=== PATIENT | female | born 1980 | race Caucasian/White ===

== ENCOUNTER 2019-05-29 09:10 | Inpatient (IN) | payer SELFPAY ==
[2019-05-29] MEDS ORDERED: LACTATED RINGERS 2,000 ML ONE (09:59)
[2019-05-29] MEDS ORDERED: REGLAN IV ONE ×2 (10:08→11:42)
[2019-05-29] MEDS ORDERED: PEPCID IV ONE ×2 (10:08→11:42)
[2019-05-29] MEDS ORDERED: BICITRA PO ONE ×2 (10:08→11:42)
[2019-05-29] MEDS ORDERED: DEXMEDETOMIDINE IV ONE (10:23)
--- NOTE | 2019-05-29 10:31 | Anesthesia Consultation ---
Anesthesia Consult and Med Hx Date of service: 05/29/19 - Airway Anesthetic Teeth Evaluation: Good ROM Head & Neck: Adequate Mental/Hyoid Distance: Adequate Mallampati Class: Class II Intubation Access Assessment: Probably Good - Pulmonary Exam CTA: Yes - Cardiac Exam Cardiac Exam: RRR - Pre-Operative Health Status ASA Pre-Surgery Classification: ASA2 Proposed Anesthetic Plan: Spinal - Pulmonary Hx Smoking: No Hx Asthma: No Hx Respiratory Symptoms: No SOB: No COPD: No Home Oxygen Therapy: No Hx Pneumonia: No Hx Sleep Apnea: No - Cardiovascular System Hx Hypertension: No Hx Coronary Artery Disease: No Hx Heart Attack/AMI: No Hx Angina: No Hx Percutaneous Transluminal Coronary Angioplasty (PTCA): No Hx Cardia Arrhythmia: No Hx Pacemaker: No Hx Internal Defibrillator: No Hx Valvular Heart Disease: No Hx Heart Murmur: No Hx Peripheral Vascular Disease: No - Central Nervous System Hx Neuromuscular Disorder: No Hx Seizures: No CVA: No Hx Back Pain: No Hx Psychiatric Problems: No - Gastrointestinal Hx Ulcer: No Hx Gastroesophageal Reflux Disease: No - Endocrine Hx Renal Disease: No Hx End Stage Renal Disease: No Hx Cirrhosis: No Hx Liver Disease: No Hx Insulin Dependent Diabetes: No Hx Non-Insulin Dependent Diabetes: No Hx Thyroid Disease: No Hx Hypothyroidism: No Hx Hyperthyroidism: No - Hematic Hx Anemia: Yes (taking iron) Hx Sickle Cell Disease: No - Other Systems Hx Alcohol Use: No Hx Substance Use: No Hx Cancer: No Hx Obesity: No
[2019-05-29] MEDS ORDERED: ZOFRAN IV PRN ×2 (10:32→13:34)
[2019-05-29] MEDS ORDERED: BENADRYL IV PRN (10:32)
[2019-05-29] MEDS ORDERED: DILAUDID IV PRN ×2 (10:32)
--- NOTE | 2019-05-29 10:32 | Anesthesia Day of Surgery ---
Anesthesia Day of Surgery - Day of Surgery Patient Examined: Yes Patient H&P Reviewed: Yes Patient is NPO: Yes Beta Blockers: No Cardiac Clearance: No Pulmonary Clearance: No Slade's Test: N/A
[2019-05-29 10:34] LABS: Basophils % (Auto) 0.7 % (0.0-1.8); Eosinophils # (Auto) 0.1 K/mm3 (0.0-0.4); Eosinophils % (Auto) 2.2 % (0.0-4.3); Hematocrit 32.6 % (30.3-42.9); Hemoglobin 11.1 gm/dl (10.1-14.3); Lymphocytes # (Auto) 1.3 K/mm3 (1.2-5.4); Lymphocytes % (Auto) 28.8 % (13.4-35.0); Mean Corpuscular HGB Conc 34 % (30-34); Mean Corpuscular Volume 90 fl (79-97); Monocytes # (Auto) 0.6 K/mm3 (0.0-0.8); Monocytes % (Auto) 13.8 % (0.0-7.3); Platelet Count 188 K/mm3 (140-440); Red Blood Count 3.62 M/mm3 (3.65-5.03); Red Cell Distribution Width 14.9 % (13.2-15.2)
[2019-05-29] MEDS ORDERED: LACTATED RINGERS 1,000 ML IV SCH ×2 (11:00→12:00)
[2019-05-29] MEDS ORDERED: PITOCin/NS 20 UNIT/1000ML DRIP 20 UNITS/1,000 ML BAG IV SCH ×3 (11:00→14:00)
[2019-05-29] MEDS ORDERED: ANCEF/STERILE WATER 2 GM/20 ML 2 GM/20 ML SYRINGE IV ONE (11:15)
--- NOTE | 2019-05-29 11:36 | History and Physical Report ---
History of Present Illness Date of examination: 05/29/19 Date of admission: 05/29/19 09:10 Chief complaint: Here for a 3rd delivery at term . History of present illness: Here for a 3rd delivery at term . Past History Past Medical History: no pertinent history (liposuction) Past Surgical History: section, other (liposuction/cosmetic reconstruction of anterior abdominal skin.) - Obstetrical History Expected Date of Delivery: 06/05/19 Actual Gestation: 39 Week(s) 0 Day(s) : 4 Medications and Allergies Allergies Allergy/AdvReac Type Severity Reaction Status Date / Time No Known Allergies Allergy Verified 08/03/13 15:05 Home Medications Medication Instructions Recorded Confirmed Last Taken Type Qxf266/Iron Fum/Folic/Docusate 1 each PO QDAY #30 tablet 09/18/13 05/07/15 05/05/15 Rx [ 19 Tablet] Acetaminophen [Acetaminophen ER 650 mg PO Q6HR #30 tablet.er 04/02/15 05/07/15 05/03/15 Rx TAB] Ferrous Sulfate [Feosol 325 MG tab] 325 mg PO BID #30 tablet 05/08/15 Unknown Rx Ibuprofen [Motrin 800 MG tab] 800 mg PO Q6H PRN #30 tablet 05/08/15 Unknown Rx oxyCODONE /ACETAMINOPHEN [Percocet 2 tab PO Q6H PRN #30 tablet 05/08/15 Unknown Rx 5/325 mg] Active Meds: Active Medications Cefazolin Sodium (Ancef/Sterile Water 2 Gm/20 Ml) 2 gm IV PREOP NR Stop: 05/29/19 16:00 Diphenhydramine HCl (Benadryl) 12.5 mg IV Q2H PRN PRN Reason: Itching Hydromorphone HCl (Dilaudid) 0.5 mg IV Q5M PRN PRN Reason: BREAK Stop: 05/29/19 23:59 Hydromorphone HCl (Dilaudid) 0.5 mg IV Q4H PRN PRN Reason: breakthrough pain > 7/10 Oxytocin/Sodium Chloride (Pitocin/Ns 20 Unit/1000ml Drip) 20 units in 1,000 mls @ 0 mls/hr IV TITR EDILBERTO Lactated Ringer's (Lactated Ringers) 1,000 mls @ 2,250 mls/hr IV PREOP EDILBERTO Stop: 05/30/19 11:27 Last Admin: 05/29/19 11:07 Dose: 2,250 mls/hr Documented by: Ondansetron HCl (Zofran) 4 mg IV Q8H PRN PRN Reason: Nausea And Vomiting Review of Systems All systems: negative - Vital Signs Vital signs: Vital Signs Temp Resp 97.3 F L 17 05/29/19 09:34 05/29/19 09:34 Temp Pulse Resp BP Pulse Ox 97.3 F L 73 17 111/54 98 05/29/19 09:34 05/29/19 10:48 05/29/19 09:34 05/29/19 10:48 05/29/19 10:48 - Physical Exam Lungs: Positive: Normal air movement Abdomen: Positive: normal appearance, soft, distention, normal bowel sounds. Negative: tenderness Uterus: Positive: enlarged (consistent with gestational age) Deep Tendon Reflex Grade: Normal +2 - Obstetrical FHR: auscultation normal Results Result Diagrams: 05/29/19 09:50 Abnormal lab results 05/29/19 Range/Units 09:50 WBC 4.3 L (4.5-11.0) K/mm3 RBC 3.62 L (3.65-5.03) M/mm3 [place] % (Auto) 13.8 H (0.0-7.3) % All other labs normal. Assessment and Plan - Patient Problems (1) Previous delivery affecting , antepartum Current Visit: Yes Status: Acute (2) 39 weeks gestation of Current Visit: No Status: Acute (3) Request for sterilization Current Visit: Yes Status: Acute Plan to address problem: All the risks of and bilateral salpingectomies were discussed and patient understood all. All her questions were answered and she gave her consent for surgery. Patient will have a delivery followed by bilateral salpingectomies.
[2019-05-29] MEDS ORDERED: WATER FOR IRRIG STERILE IR ONE (11:47)
[2019-05-29] MEDS ORDERED: NACL 0.9% IR ONE (11:47)
[2019-05-29] MEDS ORDERED: ANCEF/STERILE WATER 2 GM/20 ML IV NR (12:00)
[2019-05-29] MEDS ORDERED: ANCEF/STERILE WATER 2 GM/20 ML 2 GM/20 ML SYRINGE IV NR (12:00)
[2019-05-29] MEDS ORDERED: ZOFRAN ONE (12:40)
[2019-05-29] MEDS ORDERED: TORADOL ONE (12:41)
[2019-05-29] MEDS ORDERED: TYLENOL PO PRN (13:34)
[2019-05-29] MEDS ORDERED: NARCAN 0.4 MG/1 ML IV PRN (13:34)
[2019-05-29] MEDS ORDERED: MORPHINE IV PRN (13:34)
[2019-05-29] MEDS ORDERED: LANSINOH TP PRN (13:34)
[2019-05-29] MEDS ORDERED: TUCKS PAD TP PRN (13:34)
--- NOTE | 2019-05-29 13:43 | Operative Report ---
Operative Report Operative Report: Date of surgery: May 29 2019 Preoperative diagnoses: Term , previous section, request for tubal sterilization Postoperative diagnoses: The same. Operation: Lower segment transverse delivery, bilateral salpingectomies Surgeon:Marshall Ghotra MD Hog Stomach Preparer: ALVIN HALEY Anesthesia: Spinal block Estimated blood loss: 600 mL Complications: None Findings: There was a live baby girl in cephalic presentation weighing 7 lbs. 3 oz. scores were 8/9. The pelvis was free of any adhesions. Both fallopian tubes and ovaries were grossly normal. The uterus was unremarkable gravid structure. Procedure in detail: The patient was taken to the operating room and given a spinal block. Patient was placed in the straight supine position and a Bella catheter was inserted. The patient was prepped in the abdomen. The drapes were placed. A timeout was done. With the go ahead from the shift nurse manager, a Pfannenstiel incision was made. This incision was carried across the subcutaneous layer to the fascia which was also divided transversely. The recti abdominis muscle flaps were stripped from the fascia using a combination of blunt and sharp dissections. The muscles were in the midline to gain access to the anterior parietal peritoneum whi ch was divided after excluding any underlying viscera. The access to the peritoneal cavity was then widened by manual stretching. The bladder blade was applied. The utero vesicle peritoneal flap was divided transversely allowing the bladder to be displaced caudally. The uterine incision was placed in the lower segment transversely. The uterine incision was carried to the decidual layer. The uterine incision was extended on both sides using the bandage scissors. The amniotic sac was ruptured with clear fluid. The head was lifted out of the false maternal pelvis and delivered through the incision using fundal pressure. The airways were bulb suctioned beginning with the mouth. Continuing fundal pressure combined with traction on the mandibular processes of the jaw delivered the rest of the baby. The umbilical cord was double clamped and divided. The baby was carefully transferred to the pediatric team. The placenta was manually removed from the uterine cavity. The uterine cavity was explored and was empty of any placental remnants. The uterine incision was repaired in 2 layers with #1 Vicryl. The surgical line on the uterus was hemostatic. Both fallopian tubes were excised from fimbria to the cornual aspect of the uterus by thermal coagulation and transection of the mesosalpinges on both sides. There was no bleeding during the excision of the fallopian tubes. Both samples were sent off for histopathology. Blood and clots were cleared from the peritoneal cavity. The anterior parietal peritoneum was repaired with #1 Vicryl. The fascia was repaired with #1 Vicryl. The subcutaneous layer was made hemostatic using the Bovie before the skin was closed subcuticularly with 4-0 Vicryl. There were no complications. The estimated blood loss was 600 mL. All sponges and instrument counts were correct. Patient was safely transferred to the recovery room.
--- NOTE | 2019-05-29 13:43 | Post Anesthesia Evaluation ---
- Post Anesthesia Evaluation Patient Participated: Yes Airway Patent: Yes Stable Respiratory Function: Yes Nausea/Vomiting: No Temp > 96.8F: Yes Pain Manageable: Yes Adequeate Hydration: Yes Anesthesia Complications: No Block Receding Appropriately: Yes Patient on Ventilator: No
[2019-05-29] MEDS ORDERED: SODIUM CHLORIDE FLUSH SYRINGE 10 ML IV NR (14:00)
[2019-05-29] MEDS: TORADOL IV PRN (16:46)
[2019-05-29] MEDS: NORCO 5/325 PO PRN (22:14)
[2019-05-30] MEDS: ANCEF/NS 1 GM/50 ML 1 GM/50 ML BAG IV SCH ×2 (00:11→20:51)
[2019-05-30] MEDS: D5LR 1,000 ML IV SCH ×2 (00:11→07:31)
[2019-05-30] MEDS: TORADOL IV PRN ×3 (00:19→13:41)
[2019-05-30 00:47] LABS: Hematocrit 27.5 % (30.3-42.9); Hemoglobin 9.4 gm/dl (10.1-14.3)
[2019-05-30] MEDS ORDERED: BOOSTRIX IM ONE (06:00)
[2019-05-30] MEDS: NORCO 5/325 PO PRN ×2 (10:26→18:50)
[2019-05-30] MEDS: FEOSOL PO SCH (10:26)
[2019-05-30] MEDS: PRENATAL VITAMIN PO SCH (10:26)
[2019-05-30] MEDS ORDERED: AFLURIA QUAD 2019-2020 (3YR UP) IM ONE (12:00)
--- NOTE | 2019-05-30 18:09 | Progress Note ---
Assessment and Plan A: POD#1 s/p Repeat c/s with BTL Asymptomatic anemia Stable VSS P: Routine PO/PP care Abdominal binder Anticipate discharge home 24-48 hrs Subjective - Subjective Date of service: 05/30/19 Principal diagnosis: POD#1 s/p Repeat c/s with BTL Interval history: See H&P and operative note Patient reports: appetite normal, voiding normally, pain well controlled, flatus, ambulating normally, no bowel movement : doing well Objective - Vital Signs Latest vital signs: Vital Signs Temp Pulse Resp BP BP Pulse Ox 05/30/19 15:44 97.9 F 71 16 89/50 98 05/30/19 12:15 99.0 F 90 16 92/56 98 05/30/19 07:51 98.4 F 72 16 94/48 95 05/30/19 05:50 98.4 F 78 18 94/49 97 05/30/19 00:20 97.9 F 74 18 98/52 97 05/29/19 20:29 98.0 F 69 18 99/55 96 Intake and Output 05/30/19 05/30/19 05/30/19 07:59 15:59 23:59 Intake Total 1156.667 360 Balance 1156.667 360 Intake: IV 916.667 D5lr 1,000 ml @ 125 mls/ 916.667 hr IV DIRECT EDILBERTO Rx#: [id number] Oral 240 360 Other: Total, Intake Amount 120 360 - Exam Breasts: Present: normal Cardiovascular: Present: Regular rate, Normal S1, Normal S2, No murmurs Lungs: Present: Clear to auscultation, Normal air movement Abdomen: Present: normal appearance, soft, tenderness (as expected post-op), normal bowel sounds. Absent: distention Vulva: both: normal Uterus: Present: firm, fundal height below umbilicus (-1) Extremities: Present: normal Incision: Present: normal, dry, intact, dressed (pressure dressing CDI) - Labs Labs: Abnormal lab results 05/30/19 Range/Units 00:26 Hgb 9.4 L (10.1-14.3) gm/dl Hct 27.5 L (30.3-42.9) %
[2019-05-30] MEDS: IBUPROFEN PO PRN (20:50)
[2019-05-31] MEDS: NORCO 5/325 PO PRN ×4 (00:22→20:28)
[2019-05-31] MEDS: IBUPROFEN PO PRN ×3 (03:41→16:50)
[2019-05-31] MEDS: FEOSOL PO SCH (09:12)
[2019-05-31] MEDS: PRENATAL VITAMIN PO SCH (09:12)
--- NOTE | 2019-05-31 10:32 | Progress Note ---
Assessment and Plan - Patient Problems (1) Status post repeat low transverse section Current Visit: No Status: Acute Plan to address problem: Continue routine PP orders Keep incision dry and intact Anticipate d/c home in 48 hrs if stable (2) Anemia Current Visit: No Status: Acute Qualifiers: Anemia type: other cause Other causes of anemia: acute posthemorrhagic Qualified Code(s): D62 - Acute posthemorrhagic anemia Plan to address problem: Asymptomatic Continue daily oral iron supplementation Increase iron rich foods into diet Subjective - Subjective Date of service: 05/31/19 Principal diagnosis: POD#1 s/p Repeat c/s with BTL Interval history: See admission H & P; OB operative note and PP progress notes Patient reports: appetite normal, voiding normally, pain well controlled (with medications), flatus, ambulating normally, no bowel movement [place]: doing well, bottle feeding Objective - Vital Signs Latest vital signs: Vital Signs Temp Pulse Resp BP BP Pulse Ox 05/31/19 08:52 97.8 F 62 18 84/42 05/31/19 00:51 97.8 F 76 18 108/62 98 05/30/19 17:13 67 16 99/56 99 05/30/19 15:44 97.9 F 71 16 89/50 98 05/30/19 12:15 99.0 F 90 16 92/56 98 Intake and Output 05/30/19 05/31/19 05/31/19 23:59 07:59 15:59 Intake Total 600 480 Output Total 800 Balance -200 480 Intake: Oral 600 480 Output: Urine 800 Void 800 Other: Total, Intake Amount 120 480 Total, Output Amount 400 - Exam Breasts: Present: normal Cardiovascular: Present: Regular rate Lungs: Present: Normal air movement Abdomen: Present: soft, tenderness Uterus: Present: firm, fundal height below umbilicus (U-1) Extremities: Present: normal Deep Tendon Reflex Grade: Normal +2 Incision: Present: dry, intact, dressed
[2019-06-01] MEDS: IBUPROFEN PO PRN ×3 (00:18→17:22)
[2019-06-01] MEDS: NORCO 5/325 PO PRN ×3 (04:41→20:21)
[2019-06-01] MEDS: PRENATAL VITAMIN PO SCH (10:27)
[2019-06-01] MEDS: FEOSOL PO SCH (10:27)
[2019-06-02] MEDS: IBUPROFEN PO PRN ×3 (00:16→13:59)
[2019-06-02] MEDS: NORCO 5/325 PO PRN ×2 (02:18→09:34)
[2019-06-02] MEDS: FEOSOL PO SCH (09:34)
[2019-06-02] MEDS: PRENATAL VITAMIN PO SCH (09:34)
--- NOTE | 2019-06-02 13:03 | Progress Note ---
Assessment and Plan A: /postop S/P repeat low transverse section with bilateral salpingectomies. Doing well. Anemia secondary to and blood loss. P: Consulted with Dr. Ghotra re: patient's lowish blood pressures (patient is asymptomatic); Dr. Ghotar states it is OK to discharge patient to home today. Discussed with patient /postop discharge instructions and warning signs in detail. Discussed with patient care of incision and activity restrictions. Advised patient to avoid intercourse, lifting and heavy housework, driving, stair climbing, and tub baths (patient may take showers). Advised patient to continue to take her vitamins and iron supplements at home. Advised patient to call the [facility] clinic tomorrow morning and make an appointment for follow up in 1 week. Advised patient to return promptly if any problems. Patient voiced understanding of all instructions. Subjective - Subjective Date of service: 06/02/19 Principal diagnosis: /postop S/P LTCS with bilateral salpingectomies Interval history: /postop S/P repeat LTCS with bilateral salpingectomies. Doing well. Desires discharge. Patient did not show up on computer list so this is why timing of rounds is late. Patient reports small amount of lochia. She is voiding without difficulty, ambulating well, passing gas, tolerating a regular diet without nausea or vomiting. Patient denies headache, chest pain, cough, shortness of breath, abdominal pain, leg pain, or heavy bleeding. She is being supplemented with oral iron for anemia. Patient states she has plenty of vitamins and iron supplements at home and will continue these. Patient is bottlefeeding. Patient reports: appetite normal, voiding normally, pain well controlled, flatus, bowel movement, ambulating normally, no dizzy ambulation, no nauseated : doing well Objective - Vital Signs Latest vital signs: Vital Signs Temp Pulse Resp BP BP Pulse Ox 06/02/19 08:40 97.9 F 65 20 88/41 06/02/19 01:24 98.3 F 61 20 92/58 97 06/01/19 17:04 70 108/63 06/01/19 15:31 98.3 F 72 16 93/47 98 Intake and Output 06/01/19 06/02/19 06/02/19 23:59 07:59 15:59 Intake Total 240 120 Balance 240 120 Intake: Oral 240 120 Other: Total, Intake Amount 240 120 # Voids Void 1 1 - Exam Cardiovascular: Present: Regular rate, Normal S1, Normal S2, No murmurs Lungs: Present: Clear to auscultation Abdomen: Present: normal appearance, soft, normal bowel sounds. Absent: distention, tenderness, guarding, rigidity Uterus: Present: normal, firm, fundal height below umbilicus. Absent: bogginess, tenderness Extremities: Present: normal. Absent: tenderness, edema Incision: Present: normal, dry, intact
--- NOTE | 2019-06-02 13:16 | Discharge Summary ---
Providers - Providers Date of Admission: 05/29/19 09:10 Date of discharge: 06/02/19 Attending physician: SILVA LUX MD None Primary care physician: SILVA LUX MD Hospitalization Reason for admission: section Delivery: Procedure: repeat low transverse, other (bilateral salpingectomies) Incision: normal, dry, intact complications: none Discharge diagnosis: IUP at term delivered [place] baby: female Pertinent studies: Labs Hospital course: Normal hospital course. Condition at discharge: Good Disposition: DC-01 TO HOME OR SELFCARE - Discharge Diagnoses (1) Term delivered Status: Acute (2) Anemia due to blood loss Status: Acute Plan - Discharge Medications Prescriptions: HYDROcodone/APAP 5-325 [[place] 5/325] 1 - 2 each PO Q4HR PRN #30 tablet PRN Reason: Pain - Provider Discharge Summary Activity: routine, no sex for 6 weeks, no heavy lifting 4 weeks, no strenuous exercise Diet: routine Instructions: routine Additional instructions: Continue taking your vitamins and iron supplements at home. Call your doctor immediately for: * Fever > 100.5 * Heavy vaginal bleeding ( >1 pad per hour) * Severe persistent headache * Shortness of breath * Reddened, hot, painful area to leg or breast * Drainage or odor from incision. * Keep incision clean and dry at all times and follow doctor's instructions regarding bathing/showering - Follow up plan Follow up: SILVA LUX MD [Primary Care Provider] - 7 Days
[2019-06-02 14:21] VITALS: BP 112/65
== END 2019-06-02 15:00 | disposition home or self-care (01) | DRG 784 ==
LOC: APU 09:10 → OB 15:14
PROVIDERS: ADMIT Obstetrics & Gynecology; ATTEND Obstetrics & Gynecology
PROC: 10D00Z1 Extraction of Products of Conception, Low, Open Approach (ICD-10-PCS; principal; 2019-05-29)
PROC: 0UB70ZZ Excision of Bilateral Fallopian Tubes, Open Approach (ICD-10-PCS; 2019-05-29)
PROC: 3E0234Z Introduction of Serum, Toxoid and Vaccine into Muscle, Percutaneous Approach (ICD-10-PCS; 2019-05-30)
DX: O34.211 Maternal care for low transverse scar from previous cesarean delivery (principal); D62 Acute posthemorrhagic anemia; O99.02 Anemia complicating childbirth; Z3A.39 39 weeks gestation of pregnancy; Z37.0 Single live birth; Z79.899 Other long term (current) drug therapy; Z23 Encounter for immunization
CPT/HCPCS: 36415; 85014; 85018; 85025; 86592; 86850; 86900; 86901; 88302; 90471; 90715; G0378; J0690; J1885; J2270; J2405; J2590; J2765; J3490; J7120; J7121